=== PATIENT | female | born 1980 | race Caucasian/White ===

== ENCOUNTER 2018-05-11 17:28 | Outpatient (REF) | payer BC, SELFPAY ==
--- NOTE | 2018-05-11 14:30 | PAPFT_PTH ---
PATIENT: Shayy Mireles LOC: [facility] U#:[id number] AGE/SX: 37/F ROOM: RE05/11/[address]: Beatrice Dunham V : 1980 BED: DIS: 05/11/2018 SPEC #: [id number] RECD: 05/12/18 12:42 STATUS: YOGI REJermaine #: [id number] HORACE: 05/11/18 14:[address]: Beatrice Dunham V DEPT: [facility] Cytology RECD BY: Winnie Connor Tissues: 1 - CX/ENDOCX FOR PAP SMEARS Procedures: PAP THIN PREP/UVM Screening HPV DNA PROBE Comments: [id number]
== END 2018-05-11 17:48 ==
LOC: NCHCN 17:28
PROVIDERS: PCP Family Medicine; Visit Provider Family Medicine
DX: Z12.4 Encounter for screening for malignant neoplasm of cervix (principal); Z11.51 Encounter for screening for human papillomavirus (HPV); Z01.419 Encounter for gynecological examination (general) (routine) without abnormal findings
CPT/HCPCS: 88142; 87624

== ENCOUNTER 2021-03-13 14:51 | Outpatient (REF) | payer SELFPAY ==
[2021-03-13 22:02] LABS: Calculated LDL 124 mg/dL (<100); Cholesterol 220 mg/dL (<200); Glucose 90 mg/dL (74-106); HDL Cholesterol 70 mg/dL (40-60); TSH 1.86 uIU/mL (0.36-3.74); Triglyceride 132 mg/dL (<150)
== END 2021-03-13 14:52 | disposition home or self-care (01) ==
LOC: NCHCN 14:51
PROVIDERS: PCP Family Medicine; Visit Provider Family Medicine
DX: Z00.00 Encounter for general adult medical examination without abnormal findings (principal)
CPT/HCPCS: 80061; 82947; 84443

== ENCOUNTER 2021-08-18 09:30 | Outpatient (REF) | payer BC, SELFPAY ==
[2021-08-18 14:18] LABS: HCT 41.1 % (36.0-46.0); HGB 13.3 g/dL (11.2-15.7); MCH 31.3 pg (27.0-33.0); MCHC 32.4 % (32.0-36.0); MCV 96.7 fL (80-95); MPV 9.8 fL (8.0-11.0); Platelet Count 319 10^3/uL (130-400); RBC 4.25 10^6/uL (3.93-5.22); RDW 12.7 % (11.7-14.6); RDW-SD 45.3 fL; WBC 8.41 10^3/uL (4.4-10.8)
[2021-08-18 14:32] LABS: ALT 19 U/L (14-59); AST 19 U/L (15-37); Albumin 3.6 g/dL (3.4-5.0); Alkaline Phosphatase 63 U/L (46-116); Anion Gap 7.9 mmol/L (3-11); BUN 15 mg/dL (7-18); Bilirubin, Total 0.6 mg/dL (0.2-1.0); CO2 29.1 mmol/L (21.0-32.0); CREATININE 0.9 mg/dL (0.55-1.02); Calcium 8.7 mg/dL (8.5-10.1); Chloride 104 mmol/L (98-107); Glucose 93 mg/dL (74-106); HDL Cholesterol 75 mg/dL (40-60); LDL CHOLESTEROL 127 mg/dL (<100); Magnesium 2.1 mg/dL (1.8-2.4); Potassium 4.2 mmol/L (3.5-5.1); Sodium 141 mmol/L (136-145); TSH (W/Ref FT4) 1.95 uIU/mL (0.36-3.74); Total Protein 7.1 g/dL (6.4-8.2)
[2021-08-18 14:43] LABS: Hemoglobin A1C 5.4 % (<5.7)
[2021-08-20 05:14] LABS: Vitamin D 25 Total 32.4 ng/mL (30-100)
== END 2021-08-18 09:31 | disposition home or self-care (01) ==
LOC: NCHCN 09:30
PROVIDERS: PCP Family Medicine; Visit Provider Nurse Practitioner Family
DX: R00.2 Palpitations (principal)
CPT/HCPCS: 80053; 82306; 83721; 85027; 83036; 83718; 83735; 84443

== ENCOUNTER 2021-09-23 01:49 | Outpatient (CLI) | payer BC, SELFPAY ==
--- NOTE | 2021-10-13 12:46 | W.CARDEVENT ---
Date of service: 10/13/21 Time of Service: 12:46 Cardiac Event Recorder Referring Provider:: [place] Indications:: Palpitations Cardiac Event Note: This is a 14-day cardiac event monitor ordered for palpitations Predominant rhythm was sinus with an average heart rate of 85. Minimum was 48, maximum 164 There were very rare isolated atrial and ventricular ectopic beats. There was one atrial triplet There was no atrial fibrillation, no high-grade AV block, no pauses greater than 3 seconds Patient symptoms corresponded to sinus rhythm
== END 2021-09-23 01:50 | disposition home or self-care (01) ==
PROVIDERS: PCP Family Medicine; Visit Provider Nurse Practitioner Family
DX: R00.2 Palpitations (principal)
CPT/HCPCS: 93246

== ENCOUNTER 2021-10-26 00:57 | Outpatient (CLI) | payer BC, SELFPAY ==
--- NOTE | 2021-10-26 09:00 | ETT_ITS ---
APPROVED REPORT Exam: Exercise Treadmill Patient Location: Out-Patient Room/Bed: Stress Nurse: Heidi Ordoñez RN Ordering Provider:GLENDY SANDERSON, Contact Number: [phone] BMI: 30.81 Baseline Rhythm: Sinus Rhythm Indications: Palpitations Medical History Medical History: Hypertension, hyperlipidemia, obesity, palpitations, depression, covid 19 infxn Cardiac Medications: None Allergies: Penicillin, sulfa Cardiac Risk Factors: Hypertension, hyperlipidemia, family hx Previous Cardiac Procedures: None Pretest Chest Pain Characteristics: None Exercise History: Physically active Physical Disabilities: None Lung Sounds: Clear to auscultation Heart Sounds: Regular Stress Test Details Test: Exercise stress testing was performed using a Edilson protocol. Rest Stress HR Resting HR Supine: 88 bpm Max Heart Rate (APMHR): 180 bpm Resting HR Standin bpm Target HR (85% APMHR): 153 bpm Max HR Achieved: 169 bpm % of APMHR: 93 Recovery HR: 90 bpm HR response to stress: Normal HR response to stress BP Resting BP Supine: 124/72 mmHg Resting BP Standin/80 mmHg Max BP: 158/88 mmHg Recovery BP: 126/78 mmHg BP response to stress: Normal blood pressure response to stress. ECG Resting ECG: Sinus Rhythm Ectopy: None Stress ECG: Sinus Tachycardia ST Change: No significant ST segment changes noted Arrhythmia: None Recovery ECG: Sinus Rhythm Recovery ST Change: No significant ST segment changes noted Recovery Arrhythmia: None Clinical Reason for Termination: Stopped by RN due to difficulty monitoring EKG Stress Symptoms: None Exercise duration: 11 min34 sec Highest Stage Reached: Stage 4: 4.2 mph at 16% grade. Exercise capacity: 13.48 METs Sutton Treadmill Score: 11.1 Rate Pressure Product: [id number] Stress ECG Conclusion 1. The resting electrocardiogram was within normal limits 2. Patient exercised on the Edilson protocol and completed a workload of 13.48 METS 3. Normal hemodynamic response to exercise. The patient achieved 93% of predicted heart rate for age 4. There was no electrocardiographic evidence of myocardial ischemia 5. No dysrhythmias were noted Sutton Treadmill Score is 11.1 which is Low risk. Stress Test Summary STAGE Time (mins) Speed (mph) Grade (%) HR BP SYMPTOMS METS Supine 88 124/72 Standing 85 118/80 SpO2 99% 1 3 1.7 10 106 140/82 SpO2 96% 4.6 2 6 2.5 12 119 158/88 SpO2 97% 7 3 9 3.4 14 128 152/78 SpO2 96% 10.2 4 12 4.2 16 167 SpO2 95% 12.9 1 min recovery 128 142/78 SpO2 98% 3 min recovery 94 138/82 SpO2 98% 6 min recovery 90 126/78 SpO2 98% Test stopped by RN due to difficulty monitoring EKG.
== END 2021-10-26 01:17 ==
PROVIDERS: PCP Family Medicine; Visit Provider Nurse Practitioner Family
DX: R00.2 Palpitations (principal)
CPT/HCPCS: 93017

== ENCOUNTER 2022-04-30 15:24 | Outpatient (REF) | payer BC, SELFPAY ==
[2022-04-30 16:55] LABS: C-Reactive Protein 0.07 mg/dL (0.0-0.3); Glucose 93 mg/dL (74-106)
[2022-04-30 17:20] LABS: Calculated LDL 138 mg/dL (<100); Cholesterol 238 mg/dL (<200); HDL Cholesterol 91 mg/dL (40-60); Triglyceride 46 mg/dL (<150)
== END 2022-04-30 15:25 | disposition home or self-care (01) ==
LOC: NCHCN 15:24
PROVIDERS: PCP Family Medicine; Visit Provider Family Medicine
DX: Z00.00 Encounter for general adult medical examination without abnormal findings (principal)
CPT/HCPCS: 80061; 82947; 86140

== ENCOUNTER 2023-05-06 11:12 | Outpatient (REF) | payer BC, SELFPAY ==
--- NOTE | 2023-05-06 08:30 | PAPFT_PTH ---
PATIENT: Shayy Mireles LOC: [facility] U#:[id number] AGE/SX: 42/F ROOM: RE05/06/[address]: Beatrice Dunham V : 1980 BED: DIS: 05/06/2023 SPEC #: [id number] RECD: 05/06/23 16:46 STATUS: YOGI REJermaine #: [id number] HORACE: 05/06/23 08:[address]: Beatrice Dunham V DEPT: [facility] Cytology RECD BY: Winnie Connor Tissues: 1 - CX/ENDOCX FOR PAP SMEARS Procedures: PAP THIN PREP/UVM Screening HPV DNA PROBE Comments: [id number]
== END 2023-05-06 11:13 | disposition home or self-care (01) ==
LOC: NCHCN 11:12
PROVIDERS: PCP Family Medicine; Visit Provider Family Medicine
DX: Z12.4 Encounter for screening for malignant neoplasm of cervix (principal); Z11.51 Encounter for screening for human papillomavirus (HPV)
CPT/HCPCS: 88142; 87624

== ENCOUNTER 2023-05-09 13:30 | Outpatient (REF) | payer BC, SELFPAY ==
[2023-05-09 16:12] LABS: Calculated LDL 148 mg/dL (<100); Cholesterol 232 mg/dL (<200); HDL Cholesterol 67 mg/dL (40-60); Triglyceride 89 mg/dL (<150)
[2023-05-09 16:47] LABS: Hemoglobin A1C 5.6 % (<5.7)
== END 2023-05-09 13:31 | disposition home or self-care (01) ==
LOC: NCHCN 13:30
PROVIDERS: PCP Family Medicine; Visit Provider Family Medicine
DX: Z00.00 Encounter for general adult medical examination without abnormal findings (principal); L40.4 Guttate psoriasis
CPT/HCPCS: 80061; 83036

== ENCOUNTER 2023-05-16 12:54 | Outpatient (REF) | payer BC, SELFPAY ==
[2023-05-17 12:53] LABS: HSV 1 DNA Result Positive (Negative); HSV 2 DNA Result Negative (Negative)
== END 2023-05-16 12:55 | disposition home or self-care (01) ==
LOC: NCHCN 12:54
PROVIDERS: PCP Family Medicine; Visit Provider Family Medicine
DX: N76.0 Acute vaginitis (principal); R30.0 Dysuria
CPT/HCPCS: 87529; 87086; 87480; 87510; 87660